=== PATIENT | male | born 1960 | race Caucasian/White ===

== ENCOUNTER 2018-04-04 16:15 | Emergency (ER) | payer OTHER ==
[~2018-04-04] VITALS: Ht 200.7 cm; Wt 127.0 kg
[2018-04-04] MEDS ORDERED: CYMBALTA60 MG PO (16:20)
[2018-04-04] MEDS ORDERED: ASPIR 8181 MG PO (16:20)
[2018-04-04] MEDS ORDERED: PERCOCET 7.5-31 EACH PO (16:20)
[2018-04-04] MEDS ORDERED: PRINIVIL20 MG PO (16:20)
[2018-04-04 17:46] VITALS: BP 134/96
== END 2018-04-04 17:48 | disposition home or self-care (01) ==
LOC: M.ERS 16:15
DX: S80.01XA Contusion of right knee, initial encounter (principal); I10 Essential (primary) hypertension; E11.9 Type 2 diabetes mellitus without complications; Z88.8 Allergy status to other drugs, medicaments and biological substances; W18.39XA Other fall on same level, initial encounter; Y93.89 Activity, other specified; Y92.89 Other specified places as the place of occurrence of the external cause; Y99.8 Other external cause status